=== PATIENT | female | born 1990 | race Caucasian/White ===

== ENCOUNTER 2017-02-25 08:41 | Emergency (ER) | payer SELFPAY ==
[~2017-02-25] VITALS: Ht 172.7 cm; Wt 63.5 kg
[2017-02-25 08:47] VITALS: BP 123/66; PULSE 76; RESP 18; TEMP 97.8; O2SAT 100
--- NOTE | 2017-02-25 09:06 | PD ---
HPI Chief Complaint: Back/ Neck Pain or Injury Time Seen by Provider: 08:58 Travel History International Travel<30 days: No Contact w/Intl Traveler<30days: No Traveled to known affect area: No History of Present Illness HPI 26-year-old female presents emergency Department with complaint of lower back pain 2 days. Says [place] recently became [place] Denies new or recent injury. Denies IV drug use or cancer. Denies fever, vomiting, abdominal pain, chest pain, shortness of breath. Denies dysuria. Reports urinary frequency. Denies encopresis, incontinence, saddle anesthesias. Denies paresthesias, loss of sensation, decreased range of motion , decreased strength to bilateral lower extremities. His difficulty ambulating. Not taking any medication or tried any treatments to alleviate her symptoms. Symptoms are mild in severity. Worse with movement. Decreased while at rest. No known allergies. Denies significant past medical history. Last menstrual period approximately one week ago. No other medical complaints. No other modifying factors or associated signs and symptoms. PFSH Past Medical History Myocardial Infarction: Yes (DRUG RELATED @ 17 Y/O) ?: Not LMP: 02/18/17 : 3 Para: 3 Past Surgical History Surgical History: No Previous Surgery Social History Alcohol Use: No Tobacco Use: Yes Substance Use: Yes (COCAINE THIS AM) Allergies-Medications (Allergen,Severity, Reaction): Coded Allergies: No Known Allergies (Unverified , 02/25/17) Reported Meds & Prescriptions Reported Meds & Active Scripts Active Bactrim DS (Sulfamethoxazole-Trimethoprim) 800-160 Mg Tab 1 Tab PO BID 5 Days Ibuprofen 800 Mg Tab 800 Mg PO Q6HR PRN Review of Systems Except as stated in HPI: all other systems reviewed are Neg Physical Exam Narrative GENERAL: Well-nourished, well-developed female patient, in no acute distress; afebrile, nontoxic-appearing SKIN: Warm and dry. HEAD: Atraumatic. Normocephalic. EYES: Pupils equal and round. No scleral icterus. No injection or drainage. ENT: Mucosa pink and moist. Airway patent. NECK: Trachea midline. CARDIOVASCULAR: Regular rate and rhythm. No murmur appreciated. RESPIRATORY: No accessory muscle use. Breath Sounds clear and equal bilaterally. No retractions are to be. GASTROINTESTINAL: Abdomen soft, non-tender, nondistended. Positive bowel sounds. No hepato-splenomegaly, or palpable masses. No guarding. MUSCULOSKELETAL: Bilateral lower extremities supple and non-tense with 2+ pedal pulses and sensory intact; with full range of motion and 5/5 strength. 2 + DTRs bilaterally. Active dorsiflexion and extension of bilateral feet. Bilateral straight leg raise is negative for low back pain. Ambulatory in hallway with normal gait. Sitting up in bed at 90. No obvious deformities. No clubbing. No cyanosis. No edema. BACK: No midline point tenderness on palpation of the lumbar or thoracic spine. Tenderness on palpation of bilateral lumbar paraspinal and iliosacral area. No obvious deformities. NEUROLOGICAL: Awake and alert. Oriented 3. No obvious cranial nerve deficits. Motor grossly within normal limits. Normal speech. Moves all extremities. 5/5 strength to all extremities. Sensory intact. PSYCHIATRIC: Appropriate mood and affect; insight and judgment normal. Data Data Last Documented VS Vital Signs Date Time Temp Pulse Resp B/P (MAP) Pulse Ox O2 Delivery O2 Flow Rate FiO2 02/25/17 08:47 97.8 76 18 123/66 (85) 100 Room Air Orders Orders Urinalysis - C+S If Indicated (02/25/17 09:06) Ed Urine Pregnancytest Poc (02/25/17 09:06) Ibuprofen (Motrin) (02/25/17 09:15) Methocarbamol (Robaxin) (02/25/17 09:15) Urine Culture (02/25/17 09:10) Lidocaine 1% Inj (50 Ml) (Xylocaine 1% I (02/25/17 09:45) Ceftriaxone Inj (Rocephin Inj) (02/25/17 09:45) Ed Discharge Order (02/25/17 09:57) Labs Laboratory Tests Test 02/25/17 09:10 Urine Color YELLOW Urine Turbidity HAZY Urine pH 5.5 Urine Specific [place] 1.029 Urine Protein 30 mg/dL Urine Glucose (UA) NEG mg/dL Urine Ketones 10 mg/dL Urine Occult Blood NEG Urine Nitrite POS Urine Bilirubin NEG Urine Urobilinogen LESS THAN 2.0 MG/DL Urine Leukocyte Esterase MOD Urine RBC 6 /hpf Urine WBC 18 /hpf Urine Squamous Epithelial Cells 7 /hpf Urine Bacteria MOD /hpf Urine Mucus MANY /lpf Microscopic Urinalysis Comment CULTURE INDICATED MDM Medical Decision Making Medical Screen Exam Complete: Yes Emergency Medical Condition: Yes Medical Record Reviewed: Yes Differential Diagnosis Acute low back pain, low back strain, muscle spasms Narrative Course 26-year-old female with acute low back pain. Denies any recent injury. Denies IV drug use or cancer. Denies encopresis, incontinence, saddle anesthesias. Neuro exam is unremarkable. No midline tenderness on palpation of the lumbar or thoracic spine. Patient ambulatory in the hallway with a normal gait. Complaining of urinary frequency. Urinalysis, UPT, ibuprofen, Robaxin ordered. 0945: Urinalysis with signs of infection. Urine culture pending. Suspecting pyelonephritis. Rocephin 1 g IM ordered. Bactrim and ibuprofen prescribed for home. Instructed patient to follow up with primary care provider. Patient verbalizes understanding and agreement with treatment plan. Patient is medically cleared and stable for discharge. Discussed reasons to return to the emergency department. Patient agrees with treatment plan. The patients vital signs are stable and the patient is stable for outpatient follow-up and treatment. Patient discharged home, stable and in no acute distress. Diagnosis Primary Impression: UTI (urinary tract infection) Qualified Codes: N39.0 - Urinary tract infection, site not specified Referrals: [facility] Primary Care Physician Patient Instructions: General Instructions, Urinary Tract Infection in Women ( ED) Additional Instructions: Take antibiotics as prescribed and complete full course Drink plenty of fluids Maintain good personal hygiene Follow-up with primary care provider Return to the emergency department immediately with worsening of symptoms Med/Other Pt SpecificInfo: Prescription(s) given Scripts Sulfamethoxazole-Trimethoprim (Bactrim DS) 800-160 Mg Tab 1 TAB PO BID for Infection for 5 Days, #10 TAB 0 Refills Prov: Edna Granda 02/25/17 Ibuprofen (Ibuprofen) 800 Mg Tab 800 MG PO Q6HR Y for PAIN, #30 TAB 0 Refills Prov: Edna Granda 02/25/17 Disposition: 01 DISCHARGE HOME Condition: Stable Edna Granda Feb 25, 2017 09:06
[2017-02-25] MEDS ORDERED: METHOCARBAMOL 500 MG TAB PO ONE (09:15)
[2017-02-25] MEDS ORDERED: IBUPROFEN 800 MG TAB PO ONE (09:15)
[2017-02-25 09:31] LABS: BACTERIA, URINE MOD /hpf; BLOOD, URINE NEG (NEG); COMMENT (UR) CULTURE INDICATED; CULTURE IF INDICATED CULTURE INDICATED; GLUCOSE,URINE NEG (NEG); KETONE, URINE 10 mg/dL (NEG); MUCUS URINE MANY /lpf (OCC); NITRITE,URINE POS (NEG); PH, URINE 5.5 (5.0-8.5); SQUAMOUS EPITHELIAL CELL URINE 7 /hpf (0-5); URINE COLOR YELLOW (YELLW/STRAW)
[2017-02-25] MEDS ORDERED: LIDOCAINE HCL 1% 50 ML VIAL IM ONE (09:45)
[2017-02-25] MEDS ORDERED: IBUP1TAB7 PO (09:48)
[2017-02-25] MEDS ORDERED: CEPH-460 PO (09:48)
[2017-02-25] MEDS ORDERED: BACT800T5 PO (09:50)
== END 2017-02-25 10:45 | disposition home or self-care (01) ==
LOC: NEPD 08:41
DX: N39.0 Urinary tract infection, site not specified (principal); B96.20 Unspecified Escherichia coli [E. coli] as the cause of diseases classified elsewhere; I25.2 Old myocardial infarction; Z59.0 Homelessness; Z72.0 Tobacco use
CPT/HCPCS: 81001; 84703; 87077; 87086; 87186; 96372; 99284; J0696